=== PATIENT | female | born 1995 | race Caucasian/White ===

== ENCOUNTER → 2017-01-11 | Outpatient (CLI) | payer BC ==
[2017-01-11 16:24] LABS: CHLORIDE,CL 107 mmol/L (98-110); SODIUM,NA 139 mmol/L (136-146)
== END ==
LOC: MW.CHOBGYN 15:16
PROVIDERS: ATTEND Nurse Practitioner Women's Health
DX: R10.2 Pelvic and perineal pain (principal); R11.0 Nausea; R10.13 Epigastric pain
CPT/HCPCS: 36415; 80053; 82150; 83690; 84703; 85025; 87491; 87591

== ENCOUNTER → 2017-01-25 | Outpatient (CLI) | payer BC ==
--- NOTE | 2017-01-26 09:58 | US ---
EXAMINATION: Transvaginal pelvic ultrasound HISTORY: Dyspareunia COMPARISON: None TECHNIQUE: Grayscale, color Doppler, and spectral Doppler images obtained transvaginally. FINDINGS: The uterus appears normal in size, contour, and echogenicity without a focal uterine mass. Endometrial stripe thickness measures 9 mm. No significant free pelvic fluid. Both the left and right ovaries are normal in size, contour, and echogenicity demonstrating normal c olor and spectral Doppler flow. No adnexal masses. IMPRESSION: Unremarkable transvaginal pelvic ultrasound.
== END | disposition home or self-care (01) ==
LOC: MW.US 15:24
PROVIDERS: ATTEND Nurse Practitioner Women's Health
DX: N94.10 Unspecified dyspareunia (principal); R10.2 Pelvic and perineal pain
CPT/HCPCS: 76830; 76830-26

== ENCOUNTER → 2017-02-08 | Outpatient (CLI) | payer BC ==
--- NOTE | 2017-02-08 14:08 | US ---
EXAM DATE: 02/08/17 PATIENT'S AGE: 21 Patient: CARTER EDWARDS Facility: [place], [place] Site . Site : 1997 Study: US Abdomen [id number]/25/2017 10:49:17 AM Ordering Physician: Adolfo Nelson Final Report: CLINICAL HISTORY: Right upper quadrant pain for 7 months. FINDINGS: The patient`s liver is of normal size and has uniform echogenicity. There is a normal appearance of the hepatic IVC and proximal abdominal aorta. There is no evidence of ascites. The gallbladder is of normal size and there is no evidence of intraluminal stones or sludge. The gallbladder wall measures 1 mm in thickness. The common bile duct is of normal size and measures 1 mm in diameter at the level of the lupe hepatis. The pancreas is poorly visualized. There is no evidence of a stone within the right kidney. The right kidney measures 12.1 cm in length. Minimal prominence of the right renal pelvis. IMPRESSION: No findings for cholelithiasis or cholecystitis. Possible minimal prominence of the right renal pelvis Dictated by Angi Medrano MD @ Feb 08 2017 1:31PM (Electronic Signature) Report Signed by Proxy and Original Signed Document filed in the Medical Record. MTDD
== END ==
LOC: MW.US 09:40
PROVIDERS: ATTEND Nurse Practitioner Women's Health
DX: R10.13 Epigastric pain (principal); R10.811 Right upper quadrant abdominal tenderness
CPT/HCPCS: 76705; 76705-26

== ENCOUNTER → 2017-02-14 | Outpatient (CLI) | payer BC ==
--- NOTE | 2017-02-14 12:20 | NM ---
EXAMINATION: Nuclear medicine hepatobiliary study (HIDA) with cholecystokinin (calculation of gallbl adder ejection fraction for function). HISTORY: Epigastric pain. PROCEDURE: Following intravenous administration of 3.5 mCi of technetium 99m Choletec, dynamic images were ob tained up to one-hour post injection. This is followed by slow intravenous administration of 1.7 mcg of CCK and additional dynamic images were obtained. Gallbladder ejection fraction is calculated. FINDINGS: The initial dynamic images demonstrates clearance of the tracer from the blood pool with the prompt tracer uptake by the liver. By 15 minutes tracer activity is noted in the gallbladder. The post CCK images demonstrates optimal contraction of the gallbladder with ejection fraction of 85 percent (nor mal is equal or more than 35%). Tracer activity is noted in the small intestine following CCK admini stration. IMPRESSION: 1. Patent cystic and common bile ducts. Normal liver function. 2. Normal gallbladder ejection fraction following CCK administration ( 85 %; normal equal or more t chan 35%).
== END ==
LOC: MW.NM 10:12
PROVIDERS: ATTEND Nurse Practitioner Women's Health
DX: R10.13 Epigastric pain (principal); R10.811 Right upper quadrant abdominal tenderness
CPT/HCPCS: 78227; A9537; J2805